=== PATIENT | male | born 1960 | race Caucasian/White ===

== ENCOUNTER 2018-12-14 15:25 | Day surgery (SDC) | payer OTHER ==
[~2018-12-14] VITALS: Ht 177.8 cm; Wt 86.2 kg
[2018-12-14 15:30] VITALS: BP 120/59
[2018-12-14] MEDS ORDERED: LISI-604 PO (16:01)
[2018-12-14] MEDS ORDERED: SPIR25TA PO (16:01)
[2018-12-14] MEDS ORDERED: CHOL200016 PO (16:01)
[2018-12-14] MEDS ORDERED: METO50TA7 PO (16:01)
[2018-12-14] MEDS ORDERED: Cefazolin 2GM/100ML NS IVPB 100 ML IV ONE (16:30)
[2018-12-14] MEDS ORDERED: normal saline 1000ml 1,000 ML IV SCH (16:30)
[2018-12-14] MEDS ORDERED: ceFAZolin 1000mg inj ONE (17:53)
[2018-12-14] MEDS ORDERED: lidocaine 1%/epinephrine 1:100,000 injection 50ml vial ONE (17:53)
[2018-12-14] MEDS ORDERED: midazolam 2 mg/2 ml injection ONE (17:59)
[2018-12-14] MEDS ORDERED: fentaNYL/PF 50MCG/1 ML 2ML syringe ONE (17:59)
[2018-12-14 18:56] VITALS: BP 125/53
[2018-12-14 19:10] VITALS: BP 121/54
[2018-12-14 19:25] VITALS: BP 121/60
[2018-12-14 19:40] VITALS: BP 130/69
== END 2018-12-14 20:05 | disposition home or self-care (01) ==
LOC: SSTAY O 15:25
PROVIDERS: ATTEND Internal Medicine Interventional Cardiology
DX: I42.0 Dilated cardiomyopathy (principal); I50.9 Heart failure, unspecified; I11.0 Hypertensive heart disease with heart failure; Z79.899 Other long term (current) drug therapy; Z72.89 Other problems related to lifestyle; Z88.1 Allergy status to other antibiotic agents
CPT/HCPCS: 33249; 93005; 99152; 99153; C1722; C1777; J0690; J2250; J3010; J3490; A4565; A4620